=== PATIENT | female | born 1995 | race American Indian/Alaskan Native ===

== ENCOUNTER 2016-11-06 12:21 | Emergency (ER) | payer MEDICAID, OTHER ==
[2016-11-06 12:29] VITALS: BP 122/83
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
== END 2016-11-06 15:38 | disposition home or self-care (01) ==
LOC: ED 12:21
DX: S16.1XXA Strain of muscle, fascia and tendon at neck level, initial encounter (principal); V49.49XA Driver injured in collision with other motor vehicles in traffic accident, initial encounter; W22.11XA Striking against or struck by driver side automobile airbag, initial encounter; Y93.89 Activity, other specified; Y99.8 Other external cause status; Y92.488 Other paved roadways as the place of occurrence of the external cause
CPT/HCPCS: 72125

== ENCOUNTER 2017-10-30 22:53 | Emergency (ER) | payer MEDICAID ==
[2017-10-30 23:54] VITALS: BP 104/72
[2017-10-31] MEDS ORDERED: TYLENOL ONE (00:54)
[2017-10-31] MEDS ORDERED: TYLENOL PO ONE (01:00)
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
== END 2017-10-31 01:30 | disposition home or self-care (01) ==
LOC: ED 22:53
DX: O26.899 Other specified pregnancy related conditions, unspecified trimester (principal); K08.89 Other specified disorders of teeth and supporting structures; Z3A.00 Weeks of gestation of pregnancy not specified
CPT/HCPCS: 99282

== ENCOUNTER 2017-12-24 18:57 | Outpatient (CLI) | payer MEDICAID ==
[2017-12-24 22:32] VITALS: BP 112/73
[2017-12-24] MEDS ORDERED: VISTARIL PO ONE (23:28)
--- NOTE | 2017-12-25 16:25 | Event Note ---
Date: 12/24/17 22 year old presented to L&D triage to rule out labor. Patient reports contractions every 10 minutes. Patient denies leaking of fluid or vaginal bleeding. Patient reports active movement. EDC 01/09/18. EGA 37 weeks, 5 days gestation. Cervix 2.5/60/-2, unchanged on recheck after ambulation for 1 hour. NST reactive, category 1 heart rate tracing. Patient was discharged home with labor precautions and advice to follow up with her OB[facility] on Tuesday.
== END 2017-12-24 23:34 | disposition home or self-care (01) ==
LOC: TRG 18:57
PROVIDERS: ATTEND Obstetrics & Gynecology
DX: O47.1 False labor at or after 37 completed weeks of gestation (principal); Z87.891 Personal history of nicotine dependence; Z3A.37 37 weeks gestation of pregnancy
CPT/HCPCS: 59025; Q0177

== ENCOUNTER 2018-01-05 16:54 | Outpatient (CLI) | payer MEDICAID ==
--- NOTE | 2018-01-05 19:14 | Ultrasound Report ---
FINAL REPORT EXAM: US OB BPP WO NON-STRESS HISTORY: WELL BEING, HUNTER, POSITION, EFW TECHNIQUE: Ultrasound biophysical profile PRIORS: None. FINDINGS: Single live intrauterine gestation is present with heart rate of 136 beats per minute Biophysical profile was performed respiratory motion 2 Body movement 2 tone 2 Amniotic fluid volume 2 Total 01/18 Impression Normal biophysical profile 01/18
--- NOTE | 2018-01-05 19:16 | Ultrasound Report ---
FINAL REPORT EXAM: US OB > = 14 WEEKS FETUS HISTORY: WELL BEING, HUNTER, POSITION, EFW TECHNIQUE: Ultrasound obstetrical transabdominal PRIORS: None. FINDINGS: Single live intrauterine gestation present in cephalic presentation The placenta is grade 2 and fundal Amniotic fluid index is within normal limits 8.4 centimeters with deepest pocket measurement 3.89 centimeters cardiac activity present with heart rate of 136 beats per minute Anatomical survey demonstrates no gross abnormality biometric measurements were obtained Biparietal diameter 35 weeks 5 days Head circumference 30 weeks 3 days Abdominal circumference 39 weeks 3 days Femur length 38 weeks 4 days. Based on today's exam estimated gestational age is 38 weeks 0 days Estimated weight today is 3557 grams IMPRESSION: Single live intrauterine gestation in cephalic presentation
== END 2018-01-05 18:37 | disposition home or self-care (01) ==
LOC: TRG 16:54
PROVIDERS: ATTEND Obstetrics & Gynecology
DX: O47.1 False labor at or after 37 completed weeks of gestation (principal); Z3A.39 39 weeks gestation of pregnancy
CPT/HCPCS: 59025; 76805; 76819